=== PATIENT | male | born 1985 | race Caucasian/White ===

== ENCOUNTER 2017-01-30 07:44 | Day surgery (SDC) | payer BC, OTHER ==
[~2017-01-30] VITALS: Ht 182.9 cm; Wt 111.0 kg
[~2017-01-30 07:44] MED LIST: BUPIVACAINE/PF-EPI 0.5% 1:200K ONE; NEOSPORIN OINT, 15GM ONE
[2017-01-30] MEDS ORDERED: LACTATED RINGERS 1,000 ML IV SCH (08:13)
[2017-01-30] MEDS ORDERED: PLEASE ENTER HEIGHT AND WEIGHT MC SCH (08:30)
[2017-01-30] MEDS ORDERED: PLEASE ENTER ALLERGIES MC SCH ×2 (08:30)
[2017-01-30] MEDS ORDERED: MIDAZOLAM 1 MG/ML, 2ML ONE (08:32)
[2017-01-30] MEDS ORDERED: FENTANYL PF 250 MCG/5ML ONE (08:32)
[2017-01-30 08:36] VITALS: BP 140/82
[2017-01-30] MEDS ORDERED: OXYC-302 PO (08:42)
[2017-01-30] MEDS ORDERED: PROPOFOL 10 MG/ML, 20ML ONE (08:58)
[2017-01-30] MEDS ORDERED: ONDANSETRON 2MG/ML, 2ML ONE (08:58)
[2017-01-30] MEDS ORDERED: GLYCOPYRROLATE 0.2MG/1ML ONE (08:58)
[2017-01-30] MEDS ORDERED: DEXAMETHASONE 4 MG/ML, 1ML ONE (08:58)
[2017-01-30] MEDS ORDERED: ROCURONIUM 10 MG/ML ONE (08:58)
[2017-01-30] MEDS ORDERED: NEOSTIGMINE 1 MG/ML, 10ML ONE (08:58)
[2017-01-30] MEDS ORDERED: FENTANYL PF 100 MCG/2ML ONE (10:57)
[2017-01-30] MEDS ORDERED: HYDROmorphone 2 MG/ML, 1ML ONE (10:57)
[2017-01-30] MEDS: FENTANYL PF 100 MCG/2ML IV PRN ×3 (10:58→11:44)
[2017-01-30] MEDS: HYDROmorphone 1 MG/ML, 1ML IV PRN ×4 (11:00→11:39)
[2017-01-30] MEDS ORDERED: OXYcodone 5 MG/5 ML ORAL.SOL UDC ONE (11:03)
[2017-01-30] MEDS ORDERED: ACETAMINOPHEN 650 MG/20.3 ML UDC ONE (11:17)
[2017-01-30] MEDS ORDERED: ACETAMINOPHEN 325 MG TABLET ONE (11:17)
[2017-01-30] MEDS ORDERED: ACETAMINOPHEN 325 MG TABLET PO PRN (11:30)
[2017-01-30] MEDS ORDERED: OXYcodone 5 MG/5 ML ORAL.SOL UDC PO PRN (11:30)
[2017-01-30] MEDS ORDERED: METOCLOPRAMIDE 5 MG/ML, 2ML IV PRN (11:30)
[2017-01-30] MEDS ORDERED: ONDANSETRON 2MG/ML, 2ML IVPush PRN (11:30)
[2017-01-30] MEDS ORDERED: hydrALAzine 20 MG/ML, 1ML IV PRN (11:30)
[2017-01-30] MEDS ORDERED: LABETALOL 5MG/ML, 20ML IV PRN (11:30)
== END 2017-01-30 14:10 | disposition home or self-care (01) ==
LOC: OUT 07:44
PROVIDERS: ATTEND Orthopaedic Surgery
DX: S42.021A Displaced fracture of shaft of right clavicle, initial encounter for closed fracture (principal); F17.210 Nicotine dependence, cigarettes, uncomplicated; Z72.89 Other problems related to lifestyle; Y93.55 Activity, bike riding; Y93.9 Activity, unspecified; Y92.9 Unspecified place or not applicable; Y99.9 Unspecified external cause status
CPT/HCPCS: 23515; 73000; 76000; C1713; J1100; J1170; J2250; J2405; J2704; J2710; J3010; 76001; J3490